=== PATIENT | female | born 1955 | race Caucasian/White ===

== ENCOUNTER → 2020-04-01 14:41 | Outpatient (BNVA) | payer OTHER, SELFPAY | PROVIDERS: PCP Pediatrics; Referring Provider Pediatrics; Visit Provider Physician Assistant | DX: Z76.89 Persons encountering health services in other specified circumstances (principal) ==

== ENCOUNTER → 2020-05-06 10:27 | Outpatient (BNVA) | payer OTHER, SELFPAY | PROVIDERS: Visit Provider Orthopaedic Surgery | DX: Z76.89 Persons encountering health services in other specified circumstances (principal) ==

== ENCOUNTER → 2020-06-16 09:47 | Outpatient (BNVA) | payer OTHER, SELFPAY | PROVIDERS: Visit Provider Orthopaedic Surgery | DX: Z76.89 Persons encountering health services in other specified circumstances (principal) ==

== ENCOUNTER 2024-02-19 14:25 | Outpatient (AMB) | payer MEDICARE, SELFPAY ==
--- NOTE | 2024-02-19 14:30 | A.OFFVIS_ITS ---
Vital Signs 02/19/24 14:31 Height 5 ft 7 in Weight 267 lb 13.786 oz BMI 41.9 BP 130/80 Blood Pressure Location Lt brachial Position Sitting Pulse 74 Pulse Source Pulse Oximeter Pulse Oximetry (%) 96 Oxygen Delivery Method Room Air Intake Visit Reasons: jewels Intake Note: pt is here for cough, and jewels. 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 AND WORKS AT A DIFFERENT FACILITY A FEW NIGHTS PER WEEK. SHE HAS BEEN GROSSLY OBESE FOR THE LAST MANY YEARS, HAS NOT BEEN ABLE TO LOSE MUCH WEIGHT. SHE HAS HISTORY OF OBSTRUCTIVE SLEEP APNEA DIAGNOSED IN 2016 BY A POLYSOMNOGRAM STUDY IN THE SLEEP LAB. SHE WAS FOUND TO HAVE VERY SEVERE OBSTRUCTIVE SLEEP APNEA WITH NOCTURNAL HYPOXEMIA SHE HAS BEEN USING CPAP AT NIGHT SINCE 2016. SHE HAS BECOME TOTALLY DEPENDENT ON CPAP AT NIGHTTIME BECAUSE WITHOUT USING THE CPAP SHE HAS DIFFICULTY IN SLEEPING. HER PULMONARY FUNCTION TEST WAS BASICALLY NORMAL. WITH THE USE OF CPAP REGULARLY HER NOCTURNAL HYPOXEMIA RESOLVED AND SHE DID NOT NEED TO USE THE OXYGEN. PATIENT DOES NOT HAVE ANY CHRONIC PULMONARY PROBLEMS. HOWEVER THESE DAYS SHE DOES HAVE MILD INTERMITTENT COUGH. THIS IS MOSTLY RELATED TO ALLERGY. SHE IS HERE TODAY BECAUSE SHE IS HAVING SOME ISSUES WITH THE CPAP DEVICE, WHICH IS ALMOST 8 YEARS OLD. SHE CLAIMS THAT THE MACHINE MAKES LOT AND DENIES, AND SOMETIMES STOPS BY HERSELF.. SHE LIKES TO GET A NEW CPAP DEVICE. SHE IS NONSMOKER. [facility] Medical History (Updated 02/19/24 @ 15:25 by Leydi Rudd MD) JEWELS on CPAP Morbid obesity Surgical History History of meniscectomy of left knee History of cholecystectomy Social History Patient Tobacco Use Status: Former Tobacco user Current occupational status: employed Current occupation: [employer] - Right Handed Review of Systems Const All systems reviewed & are unremarkable except as noted in HPI and below Denies snoring Eyes Reports no additional complaints ENT Reports no additional complaints Card Denies chest pain, Denies irregular heart rhythm, Denies leg edema and Denies dyspnea Resp Reports cough, Denies dyspnea, Denies snoring and Denies wheezing GI Reports no additional complaints Reports no additional complaints Musc Reports no additional complaints Skin/Breast Reports system reviewed and no additional complaints, except as documented Neuro Reports no additional complaints Psych Reports depression (MILD CONTROLLED WITH SERTRALINE) Endo Reports no additional complaints Avi/Lymph Reports no additional complaints Aller/Immun Reports no additional complaints and Denies wheezing Physical Exam Vital Signs: Last Vital Signs Pulse 74 02/19/24 14:31 BP 130/80 02/19/24 14:31 Pulse Ox 96 02/19/24 14:31 Oxygen Delivery Method Room Air 02/19/24 14:31 BMI result Body Mass Index 41.9 Const General: healthy appearing (EXCEPT FOR BEING OVERWEIGHT), comfortable, no acute distress, alert and awake Orientation/consciousness: patient oriented x3 HEENT Head: Yes normal to inspection General nose exam: No nasal polyps present and No nasal discharge present Face and sinus: Yes sinuses nontender Mouth: oropharynx abnormals (OROPHARYNX NARROW AND CROWDED, MALLAMPATI CLASS 4) Throat: Yes posterior oropharynx normal Eyes General: appearance normal, both eyes and all related structures Neck Neck: Yes normal visual inspection, Yes no lymphadenopathy, Yes trachea midline and Yes no JVD Thyroid: Thyroid normal Chest Chest palpation & inspection: normal inspection of the chest, normal palpation of entire chest wall and no tenderness Resp Effort & Inspection: normal respiratory effort Auscultation: clear to auscultation bilaterally, no crackles and no wheezes Cardio Palpation: normal PMI Rate: regular rate Rhythm: regular rhythm Heart sounds: no gallops and no murmurs GI Palpation (GI): Soft to palpation, nontender, No hepatosplenomegaly present and no masses Auscultation: normal bowel sounds Back/Spine/Pelvis Thoracic/Lumbar Spine: thoracic and lumbar spine normal to inspection Skin General skin exam: no rashes or lesions noted Neuro General: patient oriented x3 and no focal motor deficits Cranial nerves: Yes CN's II-XII intact bilaterally Extrem General: Yes normal to inspection, Yes no clubbing, cyanosis or edema and Yes no calf tenderness Psych Appearance: grossly normal and well kempt Speech and movement: Normal speech and movement present Assessment & Plan Assessment & Plan (1) Morbid obesity: Comment: PATIENT HAS LIFELONG OBESITY. AT ONE TIME SHE WAS ACTIVELY INVOLVED IN WEIGHT MANAGEMENT PROGRAM( 2016 ) BUT THEN GAVE UP. SHE TRIES TO CONTROL HER WEIGHT BUT HAS NOT BEEN ABLE TO LOSE ANY SIGNIFICANT AMOUNT. Code(s): E66.01 - Morbid (severe) obesity due to excess calories Category: Medical Plan: TALKED TO HER ABOUT NEED TO LOSE WEIGHT. SHE SAY IS SHE IS WATCHING HER DIET AND TRIES TO BE PHYSICALLY ACTIVE. BUT PRACTICALLY IS NOT ABLE TO LOSE MUCH BECAUSE SHE IS NOT ABLE TO DO EXERCISE. SHE WILL MAKE SURE THAT HER WEIGHT DOES NOT GO ANY HIGHER. (2) JEWELS on CPAP: Comment: SHE IS KNOWN TO HAVE OBSTRUCTIVE SLEEP APNEA SINCE 2016 IT HAS BEEN WELL TREATED WITH CPAP. HER ORIGINAL PRESSURE SETTING WAS SUPPOSED TO BE 25/20 CM. PATIENT IS NOT SURE WHAT HER SETTINGS ARE AT PRESENT. CURRENT CPAP DEVICE IS NOT WORKING WELL AND MAKING LOT OF NICE. Code(s): G47.33 - Obstructive sleep apnea (adult) (pediatric) Category: Medical Plan: SHE DEFINITELY HE NEEDS TO USE THE CPAP. SHE HAS BEEN VERY COMPLIANT AND BENEFITING. I WILL ORDER A NEW CPAP DEVICE, WITH AUTO PAP MODE AND PRESSURE SETTING OF 6-20 CM, THIS WILL BE FOLLOWED BY CLOSE MONITORING FOR COMPLIANCE AND ONGOING BENEFITS. DEPENDING UPON THE COMPLIANCE REPORTS HER PRESSURE SETTINGS CAN BE ADJUSTED AT A LATER DATE Coding Level of Care Code Est Pt Level 4 (24383) Diagnoses Morbid obesity E66.01 JEWELS on CPAP G47.33
[2024-02-19 14:31] VITALS: BP 130/80; PULSE 74; O2SAT 96; BMI 41.9
== END 2024-02-19 15:06 | disposition home or self-care (01) ==
PROVIDERS: PCP Internal Medicine; Visit Provider Internal Medicine
DX: E66.01 Morbid (severe) obesity due to excess calories (principal); G47.33 Obstructive sleep apnea (adult) (pediatric)
CPT/HCPCS: 99214

== ENCOUNTER → 2024-02-19 14:25 | Outpatient (BNVA) | payer OTHER, SELFPAY | PROVIDERS: PCP Internal Medicine; Visit Provider Internal Medicine | DX: G47.33 Obstructive sleep apnea (adult) (pediatric) (principal); E66.01 Morbid (severe) obesity due to excess calories; Z68.41 Body mass index [BMI] 40.0-44.9, adult | CPT/HCPCS: 99212 ==

== ENCOUNTER 2024-05-27 14:16 | Outpatient (AMB) | payer MEDICARE, SELFPAY ==
[2024-05-27 14:23] VITALS: BP 132/90; PULSE 75; O2SAT 97
--- NOTE | 2024-05-27 14:23 | MHC.OFFVIS ---
Vital Signs 05/27/24 14:23 Height 5 ft 7 in BP 132/90 H Blood Pressure Location Lt brachial Position Sitting Pulse 75 Pulse Source Pulse Oximeter Pulse Oximetry (%) 97 Oxygen Delivery Method Room Air Intake Visit Reasons: Obstructive sleep apnea Intake Note: pt is here for follow up and states she has her new cpap and doing well but would like the pressure changed from 6-20 to 8-20. 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 Has used the CPAP successfully, sleeping better , and denies any daytime sleepiness. She has a psychological feeling that when she puts on the CPAP the pressure is not high enough. I told her that she is not on any ramp mode, she is on auto PAP mode , and she is requiring pressure of 19 cm most of the time. She understands better. She claims that her sleep is much better and actually she would not be able to sleep without the CPAP . Weight has not changed and she has not been able to join the weight management program yet. [facility] Medical History MAHAD on CPAP Morbid obesity Surgical History History of meniscectomy of left knee History of cholecystectomy Social History Patient Tobacco Use Status: Former Tobacco user Current occupational status: employed Current occupation: [employer] - Right [employer] Review of Systems Const All systems reviewed & are unremarkable except as noted in HPI and below Denies snoring Eyes Reports no additional complaints ENT Reports no additional complaints Card Denies chest pain, Denies irregular heart rhythm, Denies leg edema and Denies dyspnea Resp Reports cough, Denies dyspnea, Denies snoring and Denies wheezing GI Reports no additional complaints Reports no additional complaints Musc Reports no additional complaints Skin/Breast Reports system reviewed and no additional complaints, except as documented Neuro Reports no additional complaints Psych Reports depression (MILD CONTROLLED WITH SERTRALINE) Endo Reports no additional complaints Avi/Lymph Reports no additional complaints Aller/Immun Reports no additional complaints and Denies wheezing Physical Exam Vital Signs: Last Vital Signs Pulse 75 05/27/24 14:23 BP 132/90 H 05/27/24 14:23 Pulse Ox 97 05/27/24 14:23 Oxygen Delivery Method Room Air 05/27/24 14:23 Const General: healthy appearing (EXCEPT FOR BEING OVERWEIGHT), comfortable, no acute distress, alert and awake Orientation/consciousness: patient oriented x3 HEENT Head: Yes normal to inspection General nose exam: No nasal polyps present and No nasal discharge present Face and sinus: Yes sinuses nontender Mouth: oropharynx abnormals (OROPHARYNX NARROW AND CROWDED, MALLAMPATI CLASS 4) Throat: Yes posterior oropharynx normal Eyes General: appearance normal, both eyes and all related structures Neck Neck: Yes normal visual inspection, Yes no lymphadenopathy, Yes trachea midline and Yes no JVD Thyroid: Thyroid normal Chest Chest palpation & inspection: normal inspection of the chest, normal palpation of entire chest wall and no tenderness Resp Effort & Inspection: normal respiratory effort Auscultation: clear to auscultation bilaterally, no crackles and no wheezes Cardio Palpation: normal PMI Rate: regular rate Rhythm: regular rhythm Heart sounds: no gallops and no murmurs GI Palpation (GI): Soft to palpation, nontender, No hepatosplenomegaly present and no masses Auscultation: normal bowel sounds Back/Spine/Pelvis Thoracic/Lumbar Spine: thoracic and lumbar spine normal to inspection Skin General skin exam: no rashes or lesions noted Neuro General: patient oriented x3 and no focal motor deficits Cranial nerves: Yes CN's II-XII intact bilaterally Extrem General: Yes normal to inspection, Yes no clubbing, cyanosis or edema and Yes no calf tenderness Psych Appearance: grossly normal and well kempt Speech and movement: Normal speech and movement present Results Reviewed Results Reviewed: Compliance report for the last 30 nights is reviewed,. She has used 30/30 nights, 100%. Average usage per night 5 hours 18 minutes. Pressure used mostly 15-19 cm, 95th percentile 18.8. No significant air leak. Residual AHI 3.9 Assessment & Plan Assessment & Plan (1) Morbid obesity: Comment: PATIENT HAS LIFELONG OBESITY. AT ONE TIME SHE WAS ACTIVELY INVOLVED IN WEIGHT MANAGEMENT PROGRAM( 2016 ) BUT THEN GAVE UP. SHE TRIES TO CONTROL HER WEIGHT BUT HAS NOT BEEN ABLE TO LOSE ANY SIGNIFICANT AMOUNT. Code(s): E66.01 - Morbid (severe) obesity due to excess calories Category: Medical Plan: Discuss about the diet. . Eliminate carbs less much as possible cut down the portions. Start walking daily as much as possible (2) MAHAD on CPAP: Comment: SHE IS KNOWN TO HAVE OBSTRUCTIVE SLEEP APNEA SINCE 2016 IT HAS BEEN WELL TREATED WITH CPAP. HER ORIGINAL PRESSURE SETTING WAS SUPPOSED TO BE 25/20 CM. PATIENT IS NOT SURE WHAT HER SETTINGS ARE AT PRESENT. SHE HAS THE NEW CPAP MACHINE WHICH IS WORKING GOOD. PRESSURE SETTING IS SOMEWHAT LOWER THAN BEFORE, BUT MOST OF THE TIME SHE IS REQUIRING THE PRESSURE 15-19 CM WHICH IS WELL WITHIN THE RANGE WHICH HAS BEEN SET ON THE MACHINE. JUST FOR HER PSYCHOLOGICAL SATISFACTION WILL ADJUST THE PRESSURE TO 8- 20 CM Code(s): G47.33 - Obstructive sleep apnea (adult) (pediatric) Category: Medical Plan: COMMENDED FOR GOOD COMPLIANCE. PRESSURE CHANGED TO 8- 20 cmS . TRY TO USE FOR AT LEAST 6 HOURS PER NIGHT. Coding Level of Care Code Est Pt Level 3 (52554) Diagnoses Morbid obesity E66.01 MAHAD on CPAP G47.33
== END 2024-05-27 14:51 | disposition home or self-care (01) ==
PROVIDERS: PCP Internal Medicine; Visit Provider Internal Medicine
DX: E66.01 Morbid (severe) obesity due to excess calories (principal); G47.33 Obstructive sleep apnea (adult) (pediatric)
CPT/HCPCS: 99213

== ENCOUNTER → 2024-05-27 14:16 | Outpatient (BNVA) | payer MEDICARE, SELFPAY | PROVIDERS: PCP Internal Medicine; Visit Provider Internal Medicine | DX: G47.33 Obstructive sleep apnea (adult) (pediatric) (principal); E66.01 Morbid (severe) obesity due to excess calories; Z99.89 Dependence on other enabling machines and devices | CPT/HCPCS: 99212 ==

== ENCOUNTER 2025-04-13 04:56 | Emergency (ER) | payer MEDICARE, SELFPAY ==
--- NOTE | ~2025-04-13 | XR_ITS ---
CLINICAL HISTORY: pain 3 view left shoulder Comparison: None provided Findings: No fractures or dislocations. No significant loss of joint space or osteophytes. There are soft tissue calcifications in the region of the supraspinatus insertion. No erosions. No radiopaque foreign body. IMPRESSION: Findings of calcific tendinosis in the region of the supraspinatus insertion. No acute fracture or dislocation. Joint spaces are grossly preserved This document has been electronically signed by: Karri Kumar MD on 04/13/2025 06:37:15
[2025-04-13 04:59] VITALS: BP 151/76; PULSE 102; RESP 18; TEMP 37.4; O2SAT 95; BMI 41.8
--- NOTE | 2025-04-13 05:04 | ECG_ITS ---
Test Reason : LEFT ARM PAIN Blood Pressure : */* mmHG Vent. Rate : 78 BPM Atrial Rate : 78 BPM P-R Int : 238 ms QRS Dur : 104 ms QT Int : 382 ms P-R-T Axes : 29 -38 22 degrees QTcB Int : 435 ms Sinus rhythm with marked sinus arrhythmia with 1st degree A-V block with 2nd degree A-V block (Mobitz I) Left axis deviation Minimal voltage criteria for LVH, may be normal variant ( Pankaj product ) Abnormal ECG When compared with ECG of 25-Feb-2020 09:29, QRS axis Shifted left Referred By: Generic ED Physician Electronically Signed By: SAMEER BOCANEGRA
--- NOTE | 2025-04-13 05:04 | PC.NURSE ---
pt dropped to 87% during triage, now resting 93% on RA, denies sob. primary rn made aware.
[2025-04-13 05:09] VITALS: BP 151/76; PULSE 102; RESP 18; TEMP 37.4; O2SAT 95
[2025-04-13 05:22] LABS: MANUAL DIFF FLAG NO
[2025-04-13 05:23] LABS: Hematocrit 41.3 % (37.0-47.0); Hemoglobin 14.4 g/dl (12.0-16.0); Imm Gran Abs Auto 0.02 X10*3/uL (0.00-0.03); Imm Gran Pct Auto 0.2 % (0.0-0.4); Lymphocytes Absolute Auto 1.9 X10*3/uL (1.2-4.9); Mean Corpuscular HGB Conc 34.9 g/dl (31.0-35.0); Mean Corpuscular Hemoglobin 30.1 pg (27.0-33.0); Mean Corpuscular Volume 86.4 fL (80.0-98.0); NRBC Abs Auto 0.000 X10*3/uL (0.0-0.012); NRBC Pct Auto 0.0 /100WBC (0.0-0.2); Platelet Count 216 X10*3/uL (160-400); Red Blood Count 4.78 X10*6/uL (4.20-5.50); White Blood Count 10.8 X10*3/uL (4.8-10.8)
[2025-04-13 05:33] LABS: COVID-19 Test Negative (Negative); IDNOW Serial# 58CA691E
[2025-04-13 05:36] LABS: Alanine Aminotransferase 59 U/L (0-31); Albumin Level 4.3 g/dL (3.5-5.0); Alkaline Phosphatase 93 U/L (39-117); Anion Gap 17 (12-20); Aspartate Amino Transferase 54 U/L (5-31); Blood Urea Nitrogen 16 mg/dL (9-16); Calcium 10.1 mg/dL (8.4-10.2); Carbon Dioxide 26 mmol/L (22-29); Chloride 97 mmol/L (96-108); Creatinine Clr Calc Pharmacy 85.0; Estimated Glomerular Filt Rate > 60; IDNOW Serial# 55D5AD1C; Influenza B2 Negative (Negative); Magnesium 1.7 mg/dL (1.6-2.6); Potassium 3.6 mmol/L (3.3-5.1); Sodium 136 mmol/L (135-145); Total Protein 7.9 g/dL (6.5-8.0)
--- OUTSIDE RECORDS SUMMARY | 2025-04-13 05:53 | XMS_ITS | Clinical Summary ---
Author Organization [employer] Address [address] [place] [address] Care Team Providers Care Drop Clipper Name Role Phone PcpJohnathon Unassigned Primary Care Provider U navailable Allergies Active Allergy Reactions Criticality Noted Date Comments Gramineae Pollens 12/20/2022 Seasonal allergies Molds & Smuts 12/20/2022 Family History Medical History Relation Name Comments duodenal cancer Father Breast cancer Maternal Grandmother Fibrocystic breast disease Mother Cancer Mother's Brother Breast cancer Mother's Sister Breast cancer Paternal Grandmother Stroke Paternal Grandmother Colon cancer Neg Hx Ovarian cancer Neg Hx Relation Name Status Comments Father Maternal Grandmother Ashkena zi Tenriism Mother Mother's Brother Mother's Sister maternal gre at aunt Paternal Grandmother Social History Tobacco Use Types Packs/Day Years Used Date Smoking Tobacco: Former Cigarettes Tobacco Cessation:Counseling Given: Not Answered Comments Unknown Sex and Gender Information Value Date Recorded Sex Assigned at Female 09/13/2022 3:19 PM EDT Legal Sex Female 3:17 PM EDT Gender Identity Female 09/13/2022 3:19 PM EDT Sexual Orientation Straight 09/13/2022 3: 19 PM EDT Plan of Treatment Health Maintenance Due Date Last Done Comments CT Colonography 1954 Colonoscopy 1954 Colorectal Cancer Screening 1954 Depression Screening 1954 FIT DNA/Cologuard 1954 FIT 1954 FOBT 1954 SDOH Screening 1954 Sigmoidoscopy 1954 Alcohol/Substance Use Screening 1966 Hepatitis C Screening 1972 DTaP/Tdap/Td Vaccines (1 - Tdap) 1973 Mammogram 1994 Pneumococcal Vaccine: 50+ Ye ars (1 of 1 - PCV) 2004 Zoster Vaccines (1 of 2) 2004 Tobacco Screening 12/21/2023 12/20/2022 COVID-19 Vaccine (1 - 2023-2 5 season) 2025 Influenza Vaccine (#1) 2025 RSV Patients and Pa tients Aged 60 years or older (1 - 1-dose 75+ series) 2029 HIB Vaccines Aged Out No longer eligi ble based on patient's age to complete this topic HPV Vaccines Aged Out No longer eligi ble based on patient's age to complete this topic Hepatitis A Vaccines Aged Out No long er eligible based on patient's age to complete this topic Hepatitis B Vaccines Aged Out No long er eligible based on patient's age to complete this topic IPV Vaccines Aged Out No longer eligi ble based on patient's age to complete this topic Meningococcal B Vaccine Aged Out No l onger eligible based on patient's age to complete this topic Meningococcal Vaccine Aged Out No elise ritesh eligible based on patient's age to complete this topic RSV under 20 months Aged Out No longe r eligible based on patient's age to complete this topic Rotavirus Vaccines Aged Out No longer eligible based on patient's age to complete this topic Insurance MEDIC[facility] Care Teams Drop Clipper Relationship Specialty Start Date End Date PcpJohnathon Unassigned PCP - General Family Medicine 10/15/22
--- OUTSIDE RECORDS SUMMARY | 2025-04-13 05:53 | XMS_ITS | Clinical Summary ---
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 [facility] RBC 4.70 3.80 - 4.80 M/mcL LAB HEMETOLOGY METHOD 03/05/2025 4:51 PM EDT [facility] Hemoglobin 14.1 11.5 - 16.0 g/dL LAB HEMETOLOGY METHOD 03/05/2025 4:51 PM EDT [facility] Hematocrit 42.9 35.0 - 47.0 % LAB HEMETOLOGY METHOD 03/05/2025 4:51 PM EDT [facility] MCV 90.9 79.0 - 98.0 FL LAB HEMETOLOGY METHOD 03/05/2025 4:51 PM EDT [facility] MCH 29.9 27.0 - 32.0 pcg LAB HEMETOLOGY METHOD 03/05/2025 4:51 PM EDT [facility] MCHC 32.9 32.0 - 37.0 g/dL LAB HEMETOLOGY METHOD 03/05/2025 4:51 PM EDT [facility] RDW 12.8 11.0 - 15.0 % LAB HEMETOLOGY METHOD 03/05/2025 4:51 PM EDT [facility] Platelets 236 130 - 400 K/mcL LAB HEMETOLOGY METHOD 03/05/2025 4:51 PM EDT [facility] MPV 10.6 7.0 - 11.0 FL LAB HEMETOLOGY METHOD 03/05/2025 4:51 PM EDT [facility] NRBC 0.0 <1.0 % LAB HEMETOLOGY METHOD 03/05/2025 4:51 PM EDT [facility] NRBC Absolute 0.00 <0.10 K/mcL LAB HEMETOLOGY METHOD 03/05[facility]25 [facility] Neutrophils Relative 68.7 % LAB HEMETOLOGY METHOD 03/05/2025 4:51 PM [facility] Lymphocytes Relative 18.8 % LAB HEMETOLOGY METHOD 03/05/2025 4:51 PM [facility] Monocytes Relative 7.8 % LAB HEMETOLOGY METHOD 03/05/2025 4:51 PM [facility] Eosinophils Relative 3.4 % LAB HEMETOLOGY METHOD 03/05/2025 4:51 PM [facility] Basophils Relative 1.0 % LAB HEMETOLOGY METHOD 03/05/2025 4:51 PM [facility] Immature Granulocytes Relative 0.3 % LAB HEMETOLOGY METHOD 03/05/2025 4:51 PM [facility] Neutrophils Absolute 6.14 1.50 - 7.00 K/mcL LAB HEMETOLOGY METHOD 03/05/2025 4:51 PM [facility] Lymphocytes Absolute 1.68 1.00 - 5.00 K/mcL LAB HEMETOLOGY METHOD 03/05/2025 4:51 PM [facility] Monocytes Absolute 0.70 0.20 - 1.00 K/mcL LAB HEMETOLOGY METHOD 03/05/2025 4:51 PM [facility] Eosinophils Absolute 0.30 0.00 - 0.50 K/mcL LAB HEMETOLOGY METHOD 03/05/2025 4:51 PM [facility] Basophils Absolute 0.09 0.00 - 0.20 K/mcL LAB HEMETOLOGY METHOD 03/05/2025 4:51 PM [facility] Immature Granulocytes Absolute 0.03 0.00 - 0.03 K/mcL LAB HEMETOLOGY METHOD 03/05/2025 4:51 PM EDT [facility] Blood Venous blood specimen / Unknown Venipuncture / Unknown 03/05/2025 2:29 PM EDT 03/05/2025 2:29 PM EDT us Christy Roberson MD LAB BLOOD ORDERABLES Final Resul t Performing Organization Address City/[facility]/ZIP Co de Phone Number [facility] [address] [place] [address], [place] [phone] * Hemoglobin A1c (03/05/2025 2:29 PM EDT) Hemoglobin A1C 6.4 <6.5 % LAB CHEMISTRY METHOD 03/05/2025 9:19 PM EDT [facility] Mean Bld Glu Estim. 137 mg/dL LAB CHEMISTRY METHOD 03/05/2025 9:19 PM EDT [facility] Blood Venous blood specimen / Unknown Venipuncture / Unknown 03/05/2025 2:29 PM EDT 03/05/2025 2:29 PM EDT us Christy Roberson MD LAB BLOOD ORDERABLES Final Resul t Performing Organization Address [facility] de Phone Number [facility] [address] [place] [address], [place] [phone] * (ABNORMAL) MG Mammo Digital Screening w Luke bilat (03/05/2025 2:21 PM EDT) Anatomical Region Laterality Modality Breast Bilateral Mammography 03/08/2025 6:35 PM EDT Impressions 03/08/2025 6:44 PM EDT Progressed of microcalcifications in the anterior left upper outer breast. Additional assessment with magnification views in CC, MLO and straight lateral projections is recommended. We will contact the patient for the arrangements. BI-RADS CATEGORY: 0 - INCOMPLETE - NEED ADDITIONAL IMAGING EVALUATION RECOMMENDATION: Additional left breast imaging recommended. Mammo Location: [facility], [address] [place] [address], [id number], . -------- FINAL REPORT -------- Dictated By: Kathi Pitt Dictated Date: 03/08/2025 18:35 ET Assigned Physician: Kathi Pitt Reviewed and Electronically Signed By: Kathi Pitt Signed Date: 03/08/2025 18:44 ET Workstation ID: [id number] Transcribed By: Self Edit Transcribed Date: 03/08/2025 18:35 ET Narrative 03/08/2025 6:44 PM EDT CLINICAL: 69 years old, Female, routine annual exam. Patient was recommended to have 6 month follow-up mammogram for evaluation of the microcalcifications in the anterior left breast. Patient did not come for follow-up. COMPARISON: Screening mammogram from 10/03/2023 and diagnostic mammogram of the left breast from 10/11/2023. TECHNIQUE: Bilateral MLO and CC views were obtained digitally with 2-D C views and 3-D mammogram (digital breast tomosynthesis). Computer-aided detection was utilized in evaluation of this exam (CAD). FINDINGS: Microcalcifications of concern in the anterior upper outer left breast appear to be somewhat more prominent and heterogeneous. They need to be further assessed with magnification views in CC, MLO and straight lateral projections. There is no evidence of suspicious mass or architectural distortion. No other worrisome calcifications are evident. BREAST DENSITY: B - There are scattered areas of fibroglandular density. Procedure Note Kathi Pitt MD - 03/08/2025 CLINICAL: 69 years old, Female, routine annual exam. Patient wasrecommended to have 6 month follow-up mammogram for evaluation of themicrocalcifications in the anterior left breast. Patient did not come forfollow-up. COMPARISON: Screening mammogram from 10/03/2023 and diagnostic mammogramof the left breast from 10/11/2023. TECHNIQUE: Bilateral MLO and CC views were obtained digitally with 2-D Cviews and 3-D mammogram (digital breast tomosynthesis). Computer-aideddetection was utilized in evaluation of this exam (CAD). FINDINGS: Microcalcifications of concern in the anterior upper outer left breastappear to be somewhat more prominent and heterogeneous. They need to befurther assessed with magnification views in CC, MLO and straight lateralprojections. There is no evidence of suspicious mass or architectural distortion. Noother worrisome calcifications are evident. BREAST DENSITY: B - There are scattered areas of fibroglandular density. IMPRESSION: Progressed of microcalcifications in the anterior left upper outer breast.Additional assessment with magnification views in CC, MLO and straightlateral projections is recommended. We will contact the patient for thearrangements. BI-RADS CATEGORY: 0 - INCOMPLETE - NEED ADDITIONAL IMAGING EVALUATION RECOMMENDATION: Additional left breast imaging recommended. Mammo Location: [facility], [address] [place] [address], [id number], . -------- FINAL REPORT -------- Dictated By: Kathi Pitt Dictated Date: 03/08/2025 18:35 ET Assigned Physician: Kathi Pitt Reviewed and Electronically Signed By: Kathi Pitt Signed Date: 03/08/2025 18:44 ET Workstation ID: [id number] Transcribed By: Self Edit Transcribed Date: 03/08/2025 18:35 ET us Christy Roberson MD IMG BI PROCEDURES Final Result * DXA BONE DENSITY STUDY 1+ SITS AXIAL SKEL (10/03/2023 3:54 PM EDT) Anatomical Region Laterality Modality Bone Densitometr y 09/20/2022 11:0 8 AM EDT Narrative 10/03/2023 4:50 PM EDT BONE DENSITY Lumbar Spine T-score is +3.8 (SD relative to 20-29 y/o adult) Z-score is +5.8 (SD relative to age matched peers) This is normal by criteria defined by the WHO. Left Hip T-score is +0.9 Z-score is +2.7 This is normal by criteria defined by the WHO. Comparison exam(s): significant decrease in bone density of hip when compared to most recent bone density examination Confidence level is +/-95%. Impression: Based on the World Health Organization criteria, Shweta De Guzman should be classified as having normal bone density. The [facility] Department of Internal Medicine recommends using National Osteoporosis Foundation (NOF) guidelines in treatment decisions related to osteoporosis. NOF guidelines suggest considering treatment for postmenopausal women and men aged 50 or older presenting with the following: History of hip or vertebral fracture. T-score less than or equal to -2.5 (DXA) at the femoral neck, total hip, or spine, after appropriate evaluation to exclude secondary causes. Low bone mass (T-score between -1.0 and -2.5 at the femoral neck or spine) AND a 10-year probability of a hip fracture greater than or equal to 3% OR a 10-year probability of a major osteoporosis-related fracture greater than or equal to 20% based on the [place]-adapted WHO algorithm Please note that all treatment decisions require clinical judgment and consideration of individual patient factors, including patient preferences, co-morbidities, previous drug use, risk factors not captured in the FRAX model (e.g., frailty, falls, vitamin D deficiency, increased bone turnover, interval significant decline in bone density) and possible under- or over-estimation of fracture risk by FRAX. Procedure Note Mundo Gutierrez MD - 02/03/2024 BONE DENSITY Lumbar Spine T-score is +3.8 (SD relative to 20-29 y/o adult) Z-score is +5.8 (SD relative to age matched peers) This is normal by criteria defined by the WHO. Left Hip T-score is +0.9 Z-score is +2.7 This is normal by criteria defined by the WHO. Comparison exam(s): significant decrease in bone density of hip whencompared to most recent bone density examination Confidence level is +/-95%. Impression: Based on the World Health Organization criteria, Shweta De Guzman should beclassified as having normal bone density. The [facility] Department of Internal Medicine recommendsusing National Osteoporosis Foundation (NOF) guidelines in treatmentdecisions related to osteoporosis. NOF guidelines suggest consideringtreatment for postmenopausal women and men aged 50 or older presentingwith the following: History of hip or vertebral fracture. T-score less than or equal to -2.5 (DXA) at the femoral neck, total hip,or spine, after appropriate evaluation to exclude secondary causes. Low bone mass (T-score between -1.0 and -2.5 at the femoral neck or spine)AND a 10-year probability of a hip fracture greater than or equal to 3% ORa 10-year probability of a major osteoporosis-related fracture greaterthan or equal to 20% based on the [place]-adapted WHO algorithm Please note that all treatment decisions require clinical judgment andconsideration of individual patient factors, including patientpreferences, co-morbidities, previous drug use, risk factors not capturedin the FRAX model (e.g., frailty, falls, vitamin D deficiency, increasedbone turnover, interval significant decline in bone density) and possibleunder- or over-estimation of fracture risk by FRAX. Velia VALDES IMBrittany DXA PROCEDURES Final Resu lt from Last 3 Months or Most Recently Relevant to Health Maintenance Insurance MEDICARE [facility] Care Teams Senior Architectural Designer Relationship Specialty Start Date End Date Christy Roberson MD [address] [place] [phone] PCP - General Internal Medicine 07/31/24
--- OUTSIDE RECORDS SUMMARY | 2025-04-13 05:53 | XMS_ITS ---
Author Name [facility] Organization Unknown Care Team Organization Name Specialty Phone Email Start Date End [facility]CO 02/03/2025
--- OUTSIDE RECORDS SUMMARY | 2025-04-13 05:53 | XMS_ITS | Encounter Summary ---
Author Organization [facility] Address [address] [place] [address] Care Team Providers Care Arch Support Technician Name Role Phone Christy Roberson MD Primary Care Provider [phone] Encounter Details Date Type Department Care Team ([facility] st Contact Info) Description 03/31/2025 Results Follow-Up Adult [address] [phone] Christy Roberson MD [address] [place] [address] Social History Tobacco Use Types Packs/Day Years Used Date Smoking Tobacco: Former Cigarettes Q uit: 06/17/1990 Smokeless Tobacco: Never Alcohol Use Standard Drinks/Week Comments Yes 0 [...] care for your loved ones. For example, children librarian or elderly care for an older adult? [...] Orientation Straight 11/11/2024 11 :24 AM EDT documented as of this encounter Plan of Treatment Upcoming Encounters Date Type Department Care Team (Late st Contact Info) Description 04/27/2025 1:00 PM EST Appointment Radiology Department [address] [phone] 06/23/2025 2:30 PM EST Office Visit Adult Medicine [facility] [address] [place], [place] [phone] Christy Roberson MD [address] [place] [address] 07/20/2025 1:45 PM EST Office Visit Bariatric Surgery - [address] [place] [address] Jessika Lynn MD [address] [place] [phone] documented as of this encounter Visit Diagnoses Not on filedocumented in this encounter Additional Health Concerns Assessment Noted Time PHQ-9 Depression Total Score: 1 03/05/20 1:34 PM EDT A fall risk assessment has been complete d for the patient 03/05/2025 1:32 PM EDT documented as of this encounter Care Teams Arch Support Technician Relationship Specialty Start Date End Date Christy Rboerson MD [address] [place] [address] PCP - General Internal Medicine 07/31/24 documented as of this encounter
--- OUTSIDE RECORDS SUMMARY | 2025-04-13 05:53 | XMS_ITS | Encounter Summary ---
Author Organization [facility] Address [address] [place] [address] Care Team Providers Care Exercise Physiologist Certified Name Role Phone Christy Roberson MD Primary Care Provider [phone] Reason for Visit * Reason Onset Date Comments Referral 04/12/2025 Encounter Details Date Type Department Care Team ([facility] Contact Info) Description 04/12/2025 Telephone Adult Medicine [address] [phone] Va Paez [place] Social History Tobacco Use Types Packs/Day Years [...] care for your loved ones. For example, home child care provider or elderly care for an older adult? [...] AM EDT documented as of this encounter Progress Notes * Va Paez [place] - 04/12/2025 12:26 PM EDT Patient would like a referral to get a steroid on her Left Shoulder.Patient states she used to get them years ago.Please Advise. documented in this encounter Plan of Treatment Upcoming Encounters Date Type Department Care Team (Late st Contact Info) Description 04/27/2025 1:00 PM EST Appointment Radiology Department - [address] [phone] 06/23/2025 2:30 PM EST Office Visit Adult Medicine [address] [phone] Christy Roberson MD [address] [place] [address] 07/20/2025 1:45 PM EST Office Visit Bariatric Surgery - [address] [place] [address] Jessika Lynn MD [address] [place] [phone] documented as of this encounter Visit Diagnoses Not on filedocumented in this encounter Additional Health Concerns Assessment Noted Time PHQ-9 Depression Total Score: 1 03/05/20 1:34 PM EDT A fall risk assessment has been complete d for the patient 03/05/2025 1:32 PM EDT documented as of this encounter Care Teams Exercise Physiologist Certified Relationship Specialty Start Date End Date Christy Roberson MD [address] [place] [address] PCP - General Internal Medicine 07/31/24 documented as of this encounter
[2025-04-13 06:00] VITALS: BP 147/89; PULSE 81; RESP 20; TEMP 37; O2SAT 93
--- NOTE | 2025-04-13 06:19 | ED.EXTPRO ---
HPI - Extremity Problem General Chief complaint: Extremity Problem Stated complaint: can't move right arm Time Seen by Provider: 04/13/25 06:12 Source: patient Mode of arrival: ambulatory Limitations: no limitations History of Present Illness HPI Narrative: THIS IS 69 YEARS OLD FEMALE WHO PRESENTED TO THE EMERGENCY DEPARTMENT COMPLAINING OF LEFT SHOULDER PAIN, SHE STATES THAT SHE HAS A HISTORY OF BURSITIS SHE IS ALREADY TAKING NONSTEROIDAL AND GABAPENTIN SHE IS REQUESTING A SHOULDER INJECTION. Complaint: extremity pain Onset (ago): day(s) (2) Pain Consistency: constant Location: left Quality: burning and aching Radiation: none Relieving factors: nothing Exacerbating factors: range of motion Associated symptoms: denies other symptoms Related Data Home Medications ?Medication ?Instructions ?Recorded ?Confirmed hydrochlorothiazide 25 mg tablet 25 mg PO DAILY 02/19/24 02/19/24 losartan 100 mg tablet 100 mg PO DAILY 02/19/24 02/19/24 sertraline 50 mg tablet 50 mg PO DAILY 02/19/24 02/19/24 pantoprazole 40 mg tablet,delayed 40 mg PO DAILY 05/27/24 release Previous Rx's ?Medication ?Instructions ?Recorded oxycodone 5 mg tablet 5 mg PO Q6H PRN pain #15 tabs 04/13/25 Allergies Allergy/AdvReac Type Severity Reaction Status Date / Time lisinopril (LISINOPRIL) Allergy Unknown VERTIGO, Verified 04/13/25 05:01 COUGH, dizziness Pt states no known allergy to Allergy Unknown Unknown Uncoded 04/13/25 05:01 [facility] Past Medical History [facility] Narrative: ARTHRITIS LOWER BACK PAIN Medical History MAHAD on CPAP Morbid obesity Surgical History History of meniscectomy of left knee History of cholecystectomy Social History Social History Patient Tobacco Use Status: Former Tobacco user Smoked in Last 30 Days: No Use of substances other than those prescribed or required for medical reasons: No Advance Directives: No Advance Directives Information Provided: Yes Do you have a plan to hurt others: No Plan Current occupational status: employed Current occupation: [employer] - Right Handed Physical Exam Exam: Exam: NO ACUTE DISTRESS Vital Signs: Vital Signs: Last Vital Signs Temp 98.6 F 04/13/25 06:00 Pulse 81 04/13/25 06:00 Resp 20 04/13/25 06:00 BP 147/89 H 04/13/25 06:00 Pulse Ox 93 04/13/25 06:00 O2 Del Method Room Air 04/13/25 06:00 BMI result Body Mass Index 41.8 VITAL SIGNS ARE STABLE Const: General: cooperative Orientation/consciousness: oriented to person and patient oriented x3 Limitations: no limitations HEENT: Head: Yes normal to inspection Ears: hearing grossly normal bilaterally General nose exam: Normal external nose present Face and sinus: Yes normal facial exam Mouth: Normal oral and palatal mucosa present Neck: Neck: Yes normal visual inspection Chest: Chest palpation & inspection: normal inspection of the chest Resp: Effort & Inspection: normal respiratory effort Auscultation: clear to auscultation bilaterally Cardio: Jugular venous distension: no JVD Rate: regular rate Rhythm: regular rhythm GI: Inspection: Yes normal to inspection Palpation (GI): Soft to palpation Auscultation: normal bowel sounds Skin: General skin exam: no rashes or lesions noted Lesions: no lesions Rashes: no rashes Neuro: General: oriented to person and patient oriented x3 Cranial nerves: Yes CN's II-XII intact bilaterally Extrem: Other: EXAMINATION OF THE LEFT SHOULDER SHOWS DECREASED RANGE OF MOTION PAIN DURING THE AB DUCTION GOOD PERFUSION IN THE LEFT UPPER EXTREMITY Medical Decision Making Medical Decision Making MDM Narrative: PATIENT PRESENTED COMPLAINING OF LEFT SHOULDER PAIN SHE IS REQUESTING SHOULDER INJECTION CORTISONE, SHE IS STATING THAT HE IS THE ONLY THINGS THAT HELP HER IN THE PAST, SHE IS ALREADY TAKING NONSTEROIDAL AND GABAPENTIN. Differential Diagnosis Differential Diagnoses: The differential diagnosis associated with the presentation includes TENDINITIS/BURSITIS/IMPINGEMENT SYNDROME Admission/Observation Consideration of admission/observation: Escalation of care including admission/observation considered Lab Data [facility] Lab Attestation statement: I reviewed the patient's lab results. 04/13/25 05:16 04/13/25 05:16 Labs: Lab Results 04/13/25 Range/Units 05:16 WBC 10.8 (4.8-10.8) X10*3/uL RBC 4.78 (4.20-5.50) X10*6/uL Hgb 14.4 (12.0-16.0) g/dl Hct 41.3 (37.0-47.0) % MCV 86.4 (80.0-98.0) fL MCH 30.1 (27.0-33.0) pg MCHC 34.9 (31.0-35.0) g/dl RDW 12.1 (11.0-16.0) % Plt Count 216 (160-400) X10*3/uL MPV 9.8 (9.4-12.3) fL Immature Gran % (Auto) 0.2 (0.0-0.4) % Neut % (Auto) 72.9 (45-73) % Lymph % (Auto) 17.4 L (20-40) % Archer % (Auto) 6.1 (2-11) % Eos % (Auto) 2.9 (0-4) % Baso % (Auto) 0.5 (0-2) % Lymph # (Auto) 1.9 (1.2-4.9) X10*3/uL Archer # (Auto) 0.7 (0.1-1.2) X10*3/uL Eos # (Auto) 0.3 (0.0-0.4) X10*3/uL Baso # (Auto) 0.1 (0.0-0.2) X10*3/uL Abs Immat Gran (auto) 0.02 (0.00-0.03) X10*3/uL Absolute Neuts (auto) 7.9 (2.0-8.3) x10*3/uL Absolute Nucleated RBC 0.000 (0.0-0.012) X10*3/uL Nucleated RBC % (auto) 0.0 (0.0-0.2) /100WBC Sodium 136 (135-145) mmol/L Potassium 3.6 (3.3-5.1) mmol/L Chloride 97 (96-108) mmol/L Carbon Dioxide 26 (22-29) mmol/L Anion Gap 17 (12-20) BUN 16 (9-16) mg/dL Creatinine 0.83 (0.5-1.4) mg/dL Estim Creat Clear Calc 85.0 Estimated GFR > 60 Random Glucose 122 H (60-115) mg/dL Calcium 10.1 (8.4-10.2) mg/dL Magnesium 1.7 (1.6-2.6) mg/dL Total Bilirubin 0.5 (0.0-1.0) mg/dL AST 54 H (5-31) U/L ALT 59 H (0-31) U/L Alkaline Phosphatase 93 (39-117) U/L Total Protein 7.9 (6.5-8.0) g/dL Albumin 4.3 (3.5-5.0) g/dL COVID-19 (YAMIL) Negative (Negative) COVID-19 Clin Com See Note Influenza Type A (RENEA) Negative (Negative) Influenza Type B (RENEA) Negative (Negative) Influenza A & B Note See Note Independent Interpretation I performed an independent interpretation of an: Plain X-Ray Interpretation: I PERSONALLY REVIEWED THE X-RAY OF THE LEFT SHOULDER WHICH SHOWED A CALCIFIED TENDINITIS. Independent Historian Clinical information obtained from an independent historian. History obtained from or confirmed by: Spouse Prescription Management I considered prescription management with: Pain Medication Procedures Procedure Narrative Procedure Narrative: Left shoulder intra-articular steroid injection Verbal consent was obtained by the patient, pt was identified with the bracelet and verbally, the left shoulder area was prepped with Betadine, 40 mg of triamcinolone intra articular was injected in the left shoulder joint, patient tolerated procedure well Discharge Plan Discharge Clinical Impression: Tendonitis, calcifying, shoulder Qualifiers: Laterality: left Qualified Code(s): M75.32 - Calcific tendinitis of left shoulder Patient Disposition: Home, Self-Care Instructions: Calcific Tendinitis (ED) Additional Instructions: You should follow-up with the orthopedic we sent pain medicine to your pharmacy Prescriptions: New oxycodone 5 mg tablet 5 mg PO Q6H PRN (Reason: pain) Qty: 15 0RF Rx Instructions: partial filing upon pt request; Partial Fill upon patient request. No Action losartan 100 mg tablet 100 mg PO DAILY hydrochlorothiazide 25 mg tablet 25 mg PO DAILY sertraline 50 mg tablet 50 mg PO DAILY pantoprazole 40 mg tablet,delayed release (DR/EC) 40 mg PO DAILY Referrals: Jai Sotomayor MD [Physician, Orthopedics] - 04/15/25 Print Language: Chinese
[2025-04-13 07:12] VITALS: BP 147/89; PULSE 81; RESP 20; TEMP 37; O2SAT 93
== END 2025-04-13 07:20 | disposition home or self-care (01) ==
PROVIDERS: Emergency Provider Emergency Medicine; PCP Internal Medicine
DX: M75.32 Calcific tendinitis of left shoulder (principal); M79.601 Pain in right arm; R00.0 Tachycardia, unspecified; Z11.52 Encounter for screening for COVID-19; Z79.899 Other long term (current) drug therapy; Z87.891 Personal history of nicotine dependence
CPT/HCPCS: 73030; 80053; 83735; 85025; 87502; 87635; 93005; 96372; 99283; 99284; J3301

== ENCOUNTER → 2025-04-13 05:04 | Outpatient (BNV) | payer MEDICARE, SELFPAY | PROVIDERS: Emergency Provider Emergency Medicine; PCP Internal Medicine; Visit Provider Internal Medicine | DX: I44.0 Atrioventricular block, first degree (principal) | CPT/HCPCS: 93010 ==

== ENCOUNTER → 2025-04-13 05:40 | Outpatient (BNV) | payer MEDICARE, SELFPAY | PROVIDERS: Emergency Provider Emergency Medicine; PCP Internal Medicine; Visit Provider Radiology Diagnostic Radiology | DX: M75.32 Calcific tendinitis of left shoulder (principal) | CPT/HCPCS: 73030 ==